=== PATIENT | female | born 2000 | race Caucasian/White ===

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

== ENCOUNTER → 2023-08-26 | Outpatient (CLI) | payer BC, OTHER ==
--- NOTE | 2023-09-14 22:43 | P.PCN ---
Date of Procedure: 08/26/23 Operative Findings: Home sleep study report Date of service is 08/26/2023 Pertinent history This is a 23-year-old female patient with symptoms of snoring and overall low clinical suspicion for obstructive sleep apnea. The patient has a component of an advanced sleep phase syndrome with sleep hygiene measures. She has underlying psychiatric disorder including PTSD and depression. A home sleep study was ordered to screen this patient for an underlying sleep breathing disorder. Pertinent physical findings The patient's body mass index of 32.8 with a weight of 157 pounds Technical description The [employer] system was used to complete this home sleep study. Total recording duration was 7 hours and 40 minutes. The study started at 12:20 AM and ended at 8:01 AM. There was a total of 7 hours and 28 minutes of flow monitoring and 7 hours and 29 minutes of oxygen saturation monitoring Results The respiratory analysis showed a total of 4 obstructive apneas and 1 obstructive hypopnea resulting into an AHI of 0.7. Oxygenation analysis The baseline pulse ox was 98% while awake and the average pulse ox during sleep was 97%. Lowest recorded pulse ox was 94% Cardiac summary Average heart rate was 71 with a minimum heart rate of 54 and a maximum heart rate of 130 Assessment Primary snoring without evidence of any underlying sleep breathing disorder. The patient has an AHI of 0.7 without any significant nocturnal oxygen desaturations. Poor sleep hygiene measures Advanced sleep phase syndrome PTSD Chronic fatigue Depression Irritable bowel syndrome Polycystic bilateral ovaries Plan No need for CPAP therapy. Will work on regulating the patient's sleep schedule and sleep hygiene measures. Treat comorbidities. This is a negative study regarding obstructive sleep apnea.
== END ==
LOC: 3 N SLEEP 16:44
PROVIDERS: ATTEND Internal Medicine Critical Care Medicine
DX: F43.10 Post-traumatic stress disorder, unspecified (principal); R06.83 Snoring; R53.82 Chronic fatigue, unspecified; K58.9 Irritable bowel syndrome, unspecified; F32.A Depression, unspecified; E28.2 Polycystic ovarian syndrome